=== PATIENT | female | born 1990 ===

== ENCOUNTER 2021-11-02 05:06 | Inpatient (IN) | payer SELFPAY ==
[2021-11-02] MEDS: Lactated Ringers 1,000 ML IV SCH ×4 (05:39→21:43)
[2021-11-02] MEDS ORDERED: Metoclopramide 10 MG/2 ML SDV IVPUSH ONE (06:45)
[2021-11-02] MEDS ORDERED: Citric Acid/Sodium Citrate Solution 30 ML Cup PO ONE (06:45)
[2021-11-02] MEDS ORDERED: Ondansetron 4 MG/2 ML SDV ONE (07:05)
[2021-11-02] MEDS ORDERED: Dexamethasone 4 MG/ML SDV ONE (07:05)
[2021-11-02] MEDS ORDERED: fentaNYL 100 MCG/2 ML SDV ONE (07:06)
[2021-11-02] MEDS ORDERED: ePHEDrine 50 MG/ML SDV ONE (07:06)
[2021-11-02] MEDS ORDERED: Morphine PF 10 MG/10 ML SDV ONE (07:06)
[2021-11-02] MEDS ORDERED: Bupivacaine 0.5% 30 ML SDV ONE (07:12)
[2021-11-02] MEDS ORDERED: ceFAZolin 2 GM Vial ONE (07:14)
[2021-11-02] MEDS ORDERED: diphenhydrAMINE 50 MG/ML SDV IVPUSH PRN ×2 (07:25→13:55)
[2021-11-02] MEDS ORDERED: fentaNYL 100 MCG/2 ML SDV IVPUSH PRN (07:25)
[2021-11-02] MEDS ORDERED: Meperidine 50 MG/ML Vial IVPUSH PRN (07:25)
[2021-11-02] MEDS ORDERED: Ondansetron 4 MG/2 ML SDV IVPUSH PRN (07:25)
[2021-11-02] MEDS ORDERED: ceFAZolin 2 GM in Sodium Chloride 0.9% 50 ML IV ONE (07:45)
[2021-11-02] MEDS ORDERED: Oxytocin/Lactated Ringers 10 UNIT/1,000 ML BAG IV SCH (08:00)
[2021-11-02] MEDS ORDERED: Ketorolac 30 MG/ML SDV ONE (08:26)
[2021-11-02] MEDS ORDERED: Oxytocin 10 Units/1 ML SDV ONE (08:53)
[2021-11-02] MEDS ORDERED: Dextrose 5%-Lactated Ringers 1,000 ML ONE (10:37)
[2021-11-02] MEDS ORDERED: Methylergonovine 0.2 MG/1 ML Amp ONE (13:37)
[2021-11-02] MEDS ORDERED: Oxytocin/Lactated Ringers 10 UNIT/1,000 ML BAG IV ONE (13:37)
[2021-11-02] MEDS ORDERED: ePHEDrine 50 MG/ML SDV IVPUSH PRN (13:55)
[2021-11-02] MEDS ORDERED: Acetaminophen/oxyCODONE 325-5 MG Tab PO PRN (13:55)
[2021-11-02] MEDS ORDERED: Naloxone 0.4 MG/ML SDV IVPUSH PRN (13:55)
[2021-11-02] MEDS ORDERED: Dextrose 5%-Lactated Ringers 1,000 ML IV SCH (13:55)
[2021-11-02] MEDS ORDERED: Sodium Chloride 0.9% 500 ML ONE (14:04)
[2021-11-02] MEDS ORDERED: diphenhydrAMINE 50 MG/ML SDV IV ONE (14:10)
[2021-11-02] MEDS ORDERED: Sodium Chloride 0.9% 250 ML ONE (14:19)
[2021-11-02] MEDS ORDERED: Sodium Chloride 0.9% 50 ML ONE (16:15)
[2021-11-02] MEDS: Ketorolac 30 MG/ML SDV IVPUSH SCH ×2 (16:32→21:44)
[2021-11-03] MEDS: Lactated Ringers 1,000 ML IV SCH (04:35)
[2021-11-03] MEDS: Ketorolac 30 MG/ML SDV IVPUSH SCH (04:36)
[2021-11-03] MEDS: Ibuprofen 600 MG Tab PO PRN ×2 (14:07→23:22)
[2021-11-03] MEDS: Acetaminophen/oxyCODONE 325-5 MG Tab PO PRN ×2 (16:10→23:22)
[2021-11-04] MEDS: Ibuprofen 600 MG Tab PO PRN (05:26)
[2021-11-04] MEDS: Acetaminophen/oxyCODONE 325-5 MG Tab PO PRN (05:27)
== END 2021-11-04 13:40 | disposition home or self-care (01) | DRG 787 ==
LOC: JD.OB 05:06
PROVIDERS: ADMIT Obstetrics & Gynecology; ATTEND Obstetrics & Gynecology
PROC: 10D00Z1 Extraction of Products of Conception, Low, Open Approach (ICD-10-PCS; principal; 2021-11-02)
PROC: 30233N1 Transfusion of Nonautologous Red Blood Cells into Peripheral Vein, Percutaneous Approach (ICD-10-PCS; 2021-11-02)
DX: O34.211 Maternal care for low transverse scar from previous cesarean delivery (principal); O72.1 Other immediate postpartum hemorrhage; Z3A.37 37 weeks gestation of pregnancy; Z37.0 Single live birth; O24.429 Gestational diabetes mellitus in childbirth, unspecified control; O14.04 Mild to moderate pre-eclampsia, complicating childbirth
CPT/HCPCS: 01961; 36415; 36430; 59025; 80053; 82947; 85025; 85027; 85384; 85610; 85730; 86592; 86850; 86900; 86901; 86922; A9270-GY; J0690; J0694; J1100; J1200; J1885; J2210; J2274; J2405; J2590; J2765; J3010; J3490; J7120; J7121; P9016